=== PATIENT | female | born 1990 ===

== ENCOUNTER 2020-10-28 11:00 | Outpatient (CLI) | payer MEDICAID | END 2020-10-28 11:01 | disposition home or self-care (01) | LOC: SLR 11:00 | PROVIDERS: ATTEND Surgery | DX: G47.30 Sleep apnea, unspecified (principal) | CPT/HCPCS: G0399 ==

== ENCOUNTER 2021-04-01 07:15 | Day surgery (SDC) | payer MEDICAID ==
[~2021-04-01 07:15] MED LIST: SODIUM CHLORIDE 0.9% 1000 ML 1,000 ML IV SCH
--- NOTE | 2021-04-01 08:52 | Operative Report ---
Operative Report Operative Report: DATE: 04/01/2021 SURGERY: Upper endoscopy. SURGEON: Arvind Hensley M.D. PROCEDURE: EGD with biopsy PRE OP DX: morbid obesity, GERD POST OP DX: morbid obesity, GERD TYPE OF ANESTHESIA: MAC. ESTIMATED BLOOD LOSS: None. COMPLICATIONS: None. SPECIMENS REMOVED: antral biopsy FINDINGS: 1. Small hiatal hernia. 2. mildantral gastritis INDICATIONS:INDICATION FOR PROCEDURE: Patient is a 31-year-old female with a long history of morbid obesity. She is planned to have a weight loss procedure and is here for preoperative planning EGD. PROCEDURE DETAILS: After consent was reviewed, patient was taken back to the operating room where patient was placed in the left lateral decubitus position and a bite block was placed in the mouth. After a time-out was called, MAC anesthesia was initiated. I then passed the endoscope into her oropharynx, into her esophagus, visualized the entire esophagus, which was all within normal limits. Z-line was noted to about 35 cm from incisors. I then visualized the stomach and the first portion of the duodenum and there were no abnormalities I could clearly visualize except for mild antral gastritis. A cold forceps biopsy of the antrum was taken and will be sent to pathology to evaluate for H.pylori. I then retroflexed the scope in the stomach and visualized the hiatus and I could see a small hiatal hernia. I then desufflated the stomach and removed the endoscope. Patient tolerated procedure well and was transferred to recovery room in good and stable condition.
--- NOTE | 2021-04-01 08:52 | Anesthesia Consultation ---
Anesthesia Consult and Med Hx Date of service: 04/01/21 - Airway Anesthetic Teeth Evaluation: Chipped ROM Head & Neck: Adequate Mental/Hyoid Distance: Adequate Mallampati Class: Class I Intubation Access Assessment: Probably Good - Pulmonary Exam CTA: Yes - Cardiac Exam Cardiac Exam: RRR - Pre-Operative Health Status ASA Pre-Surgery Classification: ASA3 Proposed Anesthetic Plan: MAC - Pulmonary Hx Smoking: No Hx Respiratory Symptoms: No Hx Sleep Apnea: Yes (on CPAP) - Cardiovascular System Hx Hypertension: No Hx Cardia Arrhythmia: No - Central Nervous System Hx Neuromuscular Disorder: No - Gastrointestinal Hx Gastroesophageal Reflux Disease: No - Endocrine Hx Renal Disease: No Hx Liver Disease: No - Hematic Hx Anemia: No - Other Systems Hx Alcohol Use: No - Additional Comments Anesthesia Medical History Comments: no h/o gac. no FHAC.
--- NOTE | 2021-04-01 08:52 | Anesthesia Day of Surgery ---
Anesthesia Day of Surgery - Day of Surgery Patient Examined: Yes Patient H&P Reviewed: Yes Patient is NPO: Yes Beta Blockers: No (n/a) Cardiac Clearance: No (n/a) Pulmonary Clearance: No (n/a) Bruce's Test: N/A
--- NOTE | 2021-04-01 08:53 | Discharge Summary ---
Providers - Providers Date of Admission: 04/01/2021 Date of discharge: 04/01/21 Attending physician: KAMRYN GERONIMO MD Primary care physician: RESEARCH RN SPEC Hospitalization Reason for admission: pre-op egd Condition: Good Procedures: egd w/ bx Hospital course: Pt presented for a pre-op EGD as part of planning for up coming bariatric surgery. Procedure was uneventful and pt recovered well and was discharged to home. Disposition: DC- TO HOME OR SELFCARE Final Discharge Diagnosis (Prints w/discharge instructions): dyspepsia, morbid obesity Core Measure Documentation - Palliative Care Palliative Care/ Comfort Measures: Not Applicable - Core Measures Any of the following diagnoses?: none Exam - Physical Exam Narrative exam: unchanged from pre-op Plan Activity: no restrictions Diet: low carbohydrate Follow up with: PRIMARY MD BRITTNY [Primary Care Provider] - 7 Days
[2021-04-01] MEDS ORDERED: LIDOCAINE MPF (2%) 20 MG/1 ML VIAL 5 ML ONE (09:24)
[2021-04-01] MEDS ORDERED: ONDANSETRON 4 MG/2 ML INJ ONE (09:24)
[2021-04-01] MEDS ORDERED: propofoL 200 MG/20 ML VIAL IV ONE (09:27)
[2021-04-01] MEDS ORDERED: fentaNYL 100 MCG/2 ML INJ ONE (09:27)
[2021-04-01] MEDS ORDERED: PHENYLEPHRINE/NS 1,000 MCG/10 ML SYRINGE (OR USE) IV ONE (09:48)
[2021-04-01 09:54] VITALS: BP 102/52
--- NOTE | 2021-04-01 14:52 | Post Anesthesia Evaluation ---
- Post Anesthesia Evaluation Patient Participated: Yes Airway Patent: Yes Stable Respiratory Function: Yes Nausea/Vomiting: No Temp > 96.8F: Yes Pain Manageable: Yes Adequeate Hydration: Yes Anesthesia Complications: No Block Receding Appropriately: Not Applicable Patient on Ventilator: No
== END 2021-04-01 07:16 | disposition home or self-care (01) ==
LOC: GIO 07:15
PROVIDERS: ATTEND Surgery
DX: K21.9 Gastro-esophageal reflux disease without esophagitis (principal); E66.01 Morbid (severe) obesity due to excess calories; K44.9 Diaphragmatic hernia without obstruction or gangrene; K29.70 Gastritis, unspecified, without bleeding; B96.81 Helicobacter pylori [H. pylori] as the cause of diseases classified elsewhere; K31.89 Other diseases of stomach and duodenum; G47.30 Sleep apnea, unspecified
CPT/HCPCS: 43239; 81025; 88305; 88342; J2370; J2405; J2704; J3010; J7030